=== PATIENT | male | born 1950 | race Caucasian/White ===

== ENCOUNTER → 2019-03-18 | Outpatient (CLI) | payer OTHER ==
[~2019-03-18] MED LIST: AMLODIPINE-ATO1 EAC6 PO; BENICAR40 MG PO; CYCLOBENZAPRINE10 MG; ETODOLAC500 MG PO; HYDROCODON-ACE1 EACH PO; MEDROL DOSPAK21 TAB PO; VALIUM5 MG PO
== END ==
LOC: SJCVC 10:38
DX: I25.810 Atherosclerosis of coronary artery bypass graft(s) without angina pectoris (principal); I65.23 Occlusion and stenosis of bilateral carotid arteries; I10 Essential (primary) hypertension; I48.0 Paroxysmal atrial fibrillation; E78.5 Hyperlipidemia, unspecified; Z95.1 Presence of aortocoronary bypass graft; Z79.899 Other long term (current) drug therapy

== ENCOUNTER → 2019-04-15 | Outpatient (CLI) | payer OTHER ==
[~2019-04-15] MED LIST changes: +ANTABUSE250 M1 PO; +ASA81BEC PO; +CARVEDILOL12.5 MG PO; +FLOMAX0.4 MG PO; +LIPITOR40 MG PO; +MELATONIN10 M1 PO; +NORVASC 2.5 MG2.5 M1 PO; +OMEPRAZOLE 20 M20 M1 PO
== END ==
LOC: SJCVCIMAG 09:47
DX: I65.23 Occlusion and stenosis of bilateral carotid arteries (principal); R00.1 Bradycardia, unspecified; I25.810 Atherosclerosis of coronary artery bypass graft(s) without angina pectoris; I10 Essential (primary) hypertension; E78.5 Hyperlipidemia, unspecified; Z95.1 Presence of aortocoronary bypass graft

== ENCOUNTER → 2019-04-22 | Outpatient (CLI) | payer OTHER ==
[~2019-04-22] VITALS: Ht 182.9 cm; Wt 102.2 kg
[~2019-04-22] MED LIST changes: -FLOMAX0.4 MG PO
--- NOTE | ~2019-04-22 | HC ---
[facility] [place] [address] CONSULTATION Name: KELSI MCLEAN Room #: [facility]#: [id number] Admission: 04/22/19 Attend Phys: Porter Gutierrez MD Discharge: Date of : 52 Report #: [id number] THIS REPORT FOR: cc: Halley Nunes Karen K. RNP Forman, John M. MD ~ CC: Porter Nunes DATE OF SERVICE: 04/22/2019 We were asked by Dr. Gutierrez to see the patient. HISTORY OF PRESENT ILLNESS: The patient is a 68-year-old with carotid artery disease. The patient states he has been asymptomatic, but a carotid Doppler revealed a high-grade stenosis. Carotid arteriography today demonstrates a 95% left internal carotid stenosis. The right carotid has a 60% lesion. As mentioned, the patient denies previous stroke or transient ischemic attack. There has been no vertebrobasilar insufficiency or amaurosis. PAST MEDICAL HISTORY: Significant for hypertension and cholesterol problems. MEDICATIONS: Includes aspirin, amlodipine, atorvastatin, carvedilol, disulfiram, olmesartan and hydrochlorothiazide. FAMILY HISTORY: Positive for heart disease. SOCIAL HISTORY: Reveals the patient has never been a smoker. REVIEW OF SYSTEMS: GENERAL: No fever, chills. EYES: No vision change. HEENT: No headache, no sinus drainage. RESPIRATORY: No cough. No shortness of breath. No sputum. CARDIAC: Denies chest pain, palpitations. GASTROINTESTINAL: Denies nausea, vomiting, blood in stools. GENITOURINARY: Denies urgency, frequency, blood in urine. MUSCULOSKELETAL: Denies bone and joint problems. NEUROLOGIC: As mentioned, no stroke, no TIA. No motor or sensory dysfunction. SKIN: No rash or infection. ENDOCRINE: No tremor, no goiter. PHYSICAL EXAMINATION: GENERAL: The patient is lying in bed after his arteriogram. VITAL SIGNS: Blood pressure 132/78, heart rate 73. HEENT: No scleral icterus, no arcus. [facility] [address] [place] [address] CONSULTATION Name: KELSI MCLEAN Irene Room #: [facility]#: [id number] Admission: 04/22/19 Attend Phys: Porter Gutierrez MD Discharge: Date of : 52 Report #: [id number] NECK: No mass. I do not hear any bruit. CHEST: Clear. HEART: Rhythm regular, no murmur. ABDOMEN: Soft, no mass. EXTREMITIES: No clubbing, cyanosis or edema. MUSCULOSKELETAL: No bone or joint asymmetry or deformity. NEUROLOGIC: No motor or sensory dysfunction. PSYCHIATRIC: Oriented x 3. Shows insight into problems, answers questions appropriately. ASSESSMENT: The patient has important carotid artery disease. I have reviewed the risks and details of left carotid endarterectomy for the high-grade asymptomatic lesion. Risks include, but are not limited to bleeding, infection, anesthesia risks, heart and lung problems, stroke and . Options and alternatives were reviewed. The patient understands all of this and wishes to proceed. We will arrange for elective surgery. Thank you for the consult. By: 1323 [id number] Kiran Moses MD /nt
[2019-04-22 07:32] VITALS: BP 134/72
[2019-04-22 07:39] LABS: HEMATOCRIT 43.3 % (42.0-52.0); HEMOGLOBIN 14.5 gm/dL (14.0-18.0); MCH 31.1 pg (26.0-34.0); MCHC 33.4 g/dL (28.0-37.0); RBC 4.66 mil/uL (4.50-6.00); RDW 12.8 % (10.5-14.5); WBC 6.7 thou/uL (4.0-11.0)
[2019-04-22 07:49] LABS: CALCIUM 9.2 mg/dL (8.5-10.1); CREATININE 1.2 mg/dL (0.7-1.3); POTASSIUM 4.1 mmol/L (3.5-5.1)
== END | disposition home or self-care (01) ==
LOC: CATH 07:00
PROVIDERS: Nuclear Medicine Nuclear Cardiology
DX: I65.23 Occlusion and stenosis of bilateral carotid arteries (principal); I70.1 Atherosclerosis of renal artery; I10 Essential (primary) hypertension; I73.9 Peripheral vascular disease, unspecified; M19.90 Unspecified osteoarthritis, unspecified site; E78.5 Hyperlipidemia, unspecified; Z95.1 Presence of aortocoronary bypass graft; K21.9 Gastro-esophageal reflux disease without esophagitis; Z82.49 Family history of ischemic heart disease and other diseases of the circulatory system; Z98.890 Other specified postprocedural states; Z79.899 Other long term (current) drug therapy

== ENCOUNTER 2019-05-05 06:38 | Inpatient (IN) | payer OTHER ==
[2019-04-28 11:23] LABS: URINE BILIRUBIN NEGATIVE (Negative); URINE BLOOD NEGATIVE (Negative); URINE CLARITY CLEAR; URINE COLOR YELLOW; URINE GLUCOSE-RANDOM* NEGATIVE (Negative); URINE KETONES NEGATIVE (Negative); URINE LEUKOCYTES-REFLEX NEGATIVE (Negative); URINE NITRITE-REFLEX NEGATIVE (Negative); URINE PROTEIN (DIPSTICK) NEGATIVE (Negative); URINE SPECIFIC GRAVITY >= 1.030 (1.005-1.035)
[2019-04-28 11:25] LABS: HEMATOCRIT 44.6 % (42.0-52.0); HEMOGLOBIN 14.9 gm/dL (14.0-18.0); MCH 31.2 pg (26.0-34.0); MCHC 33.5 g/dL (28.0-37.0); MCV 93.2 fL (80.0-100.0); RBC 4.78 mil/uL (4.50-6.00); RDW 13.1 % (10.5-14.5); WBC 6.6 thou/uL (4.0-11.0)
[2019-04-28 11:36] LABS: APTT 27.4 Seconds (24.5-32.8)
[2019-04-28 11:37] LABS: ALBUMIN 3.6 g/dL (3.4-5.0); CALCIUM 9.6 mg/dL (8.5-10.1); CREATININE 1.3 mg/dL (0.7-1.3); POTASSIUM 4.3 mmol/L (3.5-5.1); TOTAL BILIRUBIN 0.6 mg/dL (<0.1-1.0); TOTAL PROTEIN 6.5 g/dL (6.4-8.2)
[~2019-05-05] VITALS: Ht 185.4 cm; Wt 104.5 kg
[2019-05-05 07:54] VITALS: BP 139/73
[2019-05-05 12:43] VITALS: BP 112/67
[2019-05-05 12:45] VITALS: BP 107/66
--- NOTE | 2019-05-05 14:50 | NUR ---
8780-RECEIVED PT FROM VIA BED.ORIENTED TO ROOM.--VW 3790-MED EARLIER FOR C/O SEVERE BRYSON.CRACKERS GIVEN PRIOR TO ORAL MED-PT DIDN'T WANT FENTANYL FOR PAIN.BRYSON MILD,ALMOST GONE NOW PER PT.ON CELLPHONE INITIALLY, ENC TO TAKE A NAP. IN TO SEE.--VW
[2019-05-05 16:01] VITALS: BP 108/57
--- NOTE | 2019-05-05 18:43 | NUR ---
PT DOING WELL W POST OP CARE & PROGRESSING TOWARD GOALS.PLAN TO D/C HOME IN AM.--VW
[2019-05-05 23:11] VITALS: BP 114/61
[2019-05-06 04:27] LABS: HEMATOCRIT 38.3 % (42.0-52.0); HEMOGLOBIN 13.1 gm/dL (14.0-18.0); MCH 31.8 pg (26.0-34.0); MCHC 34.3 g/dL (28.0-37.0); MCV 92.5 fL (80.0-100.0); RBC 4.14 mil/uL (4.50-6.00); RDW 13.4 % (10.5-14.5); WBC 14.3 thou/uL (4.0-11.0)
[2019-05-06 04:33] LABS: CALCIUM 8.8 mg/dL (8.5-10.1); CREATININE 1.1 mg/dL (0.7-1.3); POTASSIUM 4.4 mmol/L (3.5-5.1)
[2019-05-06 06:44] VITALS: BP 109/51
--- NOTE | 2019-05-06 07:43 | NUR ---
NO CHANGES OVERNIGHT. BP STABLE, SBP BETWEEN 110-140. PT ONLY C/O MINOR PAIN IN NECK/HEAD ON A FEW OCCASIONS. PO PAIN MEDS GIVEN. A-LINE AND MAI D/C THIS AM AND PT UP IN CHAIR. WILL CONTINUE TO MONITOR.
[2019-05-06 09:32] VITALS: BP 114/52
--- NOTE | 2019-05-06 10:44 | NUR ---
chart review. pt independent prior to hospital. lives with at home [facility]. noted pt through bay window, he was up sitting in recliner. cm spoke with [facility] via phone call, yes he will be coming home today with tube in for drainage and they going to bring him out to the car. just need the discharge instruction with all needed do's and don't for discharge him home. " thank you all at [facility] had done a wonderful job and care for the patients."/zeinab . will cont following as needed for dc needs.
[2019-05-06] MEDS ORDERED: FLOMAX0.4 MG PO (14:31)
[2019-05-06 14:32] VITALS: BP 114/52
[2019-05-06 14:48] VITALS: BP 114/52
[2019-05-06 15:22] VITALS: BP 114/52
--- NOTE | 2019-05-06 15:24 | NUR ---
PT D/C TO [facility] VIA CAR. A/OX4, ALL QUESTIONS ANSWERED, FLOMAX MEDICATION NEW-EDUCATION MICROMEDEX PRINTED, F/U APPT REVIEWED WITH PT BOTH PRIMARY (LITZY ALEJO) TO ADDRESS URINARY RETENTION AND F/U WITH CARISA REGARDING DAVID DRESSING AND HOSPITAL F/U. ROLANDA EDUCATED PT ON DAVID DRESSING LEAKS AND INCISION INFECTION S/S, EDUCATED PT WHEN TO HOLD B/P MEDICATIONS. ALL QUESTIONS ANSWERED. REVIEWED D/C INFORMATION WITH AT CAR.
--- NOTE | 2019-05-06 16:07 | PATH ---
[facility] [address] [place] [address] PATHOLOGY RPT PROCEDURE Name: KELSI KHALIL Room #: 248-P [facility]#: [id number] Admission: 05/05/19 Date of : 52 Discharge: 05/06/19 Report #: [id number] Path Case #: [id number] [facility] Accession Number: [id number] . 01 Material submitted: . artery - LEFT CAROTID PLAQUE. Modifiers: left . 01 Clinical history: . Carotid stenosis . 02 Diagnosis: Left carotid plaque, endarterectomy: - Calcified atherosclerotic plaque. (IUV/db; 05/06/2019) LBQ 05/06/2019 1312 Local . 02 Electronically signed: . Juliette Garcia MD, Pathologist NPI- [id number] . 01 Gross description: . The specimen is received in formalin, labeled "Kelsi Khalil, left carotid plaque". Received are two segments of partially calcified plaque measuring 2.5 x 1.0 x 0.7 cm in aggregate dimensions. The specimen is submitted representatively in cassette A1, following light decalcification. (CAA; 05/05/2019) QAC/QAC 05/05/2019 1524 Local . 02 Pathologist provided ICD-10: I65.22 . 02 CPT . 247752, [id number] Specimen Comment: A courtesy copy of this report has been sent to [phone] Specimen Comment: Report sent to Performed at: [address] [facility], [place] [id number] MD Junito Messer MD Phone: [phone] Performed at: [address] [id number] MD Juliette Garcia MD Phone: [phone]
--- NOTE | 2019-05-08 15:35 | O ---
[facility] [place] [address] OPERATIVE REPORT Name: KELSI MCLEAN Room #: 248-P [facility] M.R[facility]#: [id number] Admission: 05/05/19 Attend Phys: Kiran Moses MD Discharge: 05/06/19 Date of : 52 Report #: [id number] THIS REPORT FOR: cc: Halley Nunes Karen K. RNP Forman, John M. MD ~ CC: Kiran Nunes DATE OF SERVICE: 05/05/2019 PREOPERATIVE DIAGNOSIS: Left carotid artery stenosis. POSTOPERATIVE DIAGNOSIS: Left carotid artery stenosis. OPERATION: Left carotid endarterectomy with patch closure. SURGEON: Kiran Moses MD ANESTHESIA: General. INDICATIONS: The patient is a 68-year-old with a high-grade, but asymptomatic stenosis. The left internal carotid has a 95% stenosis, right side has a 60% stenosis. FINDINGS AND TECHNIQUE: After general anesthesia was established, exposure was obtained through an oblique left neck incision, common facial vein was divided. Common internal and external carotid arteries were identified and controlled, 10,000 units of heparin were given. Continuous electroencephalographic monitoring was performed. When the carotid vessels were occluded, no EEG changes were noted. The carotid arteriotomy was made. The endarterectomy was performed without creating a distal flap. Neointima was inspected and all loose debris was removed. Tacking sutures were placed at the transition zone. When the endarterectomy was deemed to be satisfactory, the arteriotomy was closed with thin walled pericardial patch and running Prolene. Prior to finishing the closure, the carotid vessels were backbled and the artery was irrigated with heparinized saline. Flow was established first through the external, then the internal carotid artery. Protamine was given. Hemostasis was ascertained, a Laporte drain was brought out through the bottom pole of the incision. When the wound was felt to be hemostatic, the incision was closed in layers with interrupted Vicryl for the [facility] [address] [place] [address] OPERATIVE REPORT Name: KELSI MCLEAN Room #: 248-P [facility]#: [id number] Admission: 05/05/19 Attend Phys: Kiran Moses MD Discharge: 05/06/19 Date of : 52 Report #: [id number] platysma and Monocryl for the skin. The patient tolerated the procedure well and was taken to the recovery area where the neurologic progress was monitored. All counts reported as correct. <ELECTRONICALLY SIGNED> By: Kiran Moses MD 05/08/19 1535 1051 1107 Kiran Moses MD /nt
== END 2019-05-06 15:30 | disposition home or self-care (01) | DRG 39 ==
LOC: TBA 06:38 → ICU 06:38 → PRE 09:42 → ICU 12:47
PROVIDERS: ADMIT Surgery Vascular Surgery
PROC: 03CL0ZZ Extirpation of Matter from Left Internal Carotid Artery, Open Approach (ICD-10-PCS; principal; 2019-05-05)
DX: I65.22 Occlusion and stenosis of left carotid artery (principal); M19.90 Unspecified osteoarthritis, unspecified site; I10 Essential (primary) hypertension; K21.9 Gastro-esophageal reflux disease without esophagitis; I73.9 Peripheral vascular disease, unspecified; E66.9 Obesity, unspecified; E78.5 Hyperlipidemia, unspecified; Z79.899 Other long term (current) drug therapy; Z79.82 Long term (current) use of aspirin; Z23 Encounter for immunization; Z95.1 Presence of aortocoronary bypass graft; Z68.30 Body mass index [BMI] 30.0-30.9, adult
CPT/HCPCS: 10078; 47375; 50010; 50101; 50386; 50417; 50455; 51301; 52279; 52287; 54118; 56524; 56526; 56528; 56531; 56534; 57254; 62110; 62900; 65020; 70005

== ENCOUNTER → 2020-01-20 | Outpatient (CLI) | payer OTHER ==
[~2020-01-20] MED LIST changes: +FLOMAX0.4 MG PO
== END ==
LOC: SJCVCIMAG 13:59 → SJCVC 13:59
PROVIDERS: ATTEND Internal Medicine Cardiovascular Disease
DX: I73.9 Peripheral vascular disease, unspecified (principal); M79.604 Pain in right leg; M79.605 Pain in left leg; I10 Essential (primary) hypertension; E78.5 Hyperlipidemia, unspecified; Z95.1 Presence of aortocoronary bypass graft; Z79.82 Long term (current) use of aspirin; Z79.899 Other long term (current) drug therapy

== ENCOUNTER → 2020-08-10 | Outpatient (CLI) | payer OTHER | LOC: SJCVC 13:47 → SJCVCIMAG 13:47 | PROVIDERS: ATTEND Internal Medicine Cardiovascular Disease | DX: I65.23 Occlusion and stenosis of bilateral carotid arteries (principal); R94.31 Abnormal electrocardiogram [ECG] [EKG]; I49.1 Atrial premature depolarization; I25.10 Atherosclerotic heart disease of native coronary artery without angina pectoris; I10 Essential (primary) hypertension; E78.5 Hyperlipidemia, unspecified; E78.00 Pure hypercholesterolemia, unspecified; Z95.1 Presence of aortocoronary bypass graft; Z98.890 Other specified postprocedural states; Z79.82 Long term (current) use of aspirin; Z79.84 Long term (current) use of oral hypoglycemic drugs; Z79.899 Other long term (current) drug therapy; Z82.49 Family history of ischemic heart disease and other diseases of the circulatory system ==